=== PATIENT | male | born 1950 | race African-American/Black ===

== ENCOUNTER 2017-08-02 16:09 | Inpatient (IN) | payer MEDICARE, MEDICAID ==
[~2017-08-02] VITALS: Ht 182.9 cm; Wt 94.8 kg
[~2017-08-02 16:09] MED LIST: ACET-2178 PO; ALBU18HF2 IH; AMLO5TAB4 PO; DULERA INHALER; FURO20TA4 PO; HYDR-4134 PO; HYDR100T31 PO; METH10TA2 PO; METO25TA6 PO; MONT10TA24 PO; TIOT18CA3 PO; TRAMADOL PO
[2017-08-02] MEDS ORDERED: IPRATROPIUM BROMIDE (0.02%) 0.5MG/2.5ML NEB HHN STA (17:31)
[2017-08-02] MEDS ORDERED: ALBUTEROL (0.083%) 2.5MG/3ML NEB HHN STA (17:31)
[2017-08-02] MEDS ORDERED: METHYLPREDNISOLONE SOD SUCC 125 MG/2 ML VIAL IV STA (17:31)
[2017-08-02 18:02] LABS: BASOPHILS % 0.7 % (0.0-2.0); EOSINOPHILS % 1.4 % (0.0-5.0); HEMATOCRIT. 30.9 % (42.0-52.0); HEMOGLOBIN. 9.9 g/dL (14.0-18.0); MEAN CORPUSCULAR VOLUME 84.5 fL (80.0-94.0); MONOCYTES % 11.4 % (2.0-8.0); NEUTROPHILS % 56.5 % (40.0-76.0); PLATELET 300 x1000/uL (130-400); RED BLOOD CELL COUNT 3.65 mill/uL (4.7-6.1); RED CELL DISTRIBUTION WIDTH 15.1 % (11.6-14.6)
[2017-08-02 18:09] LABS: CHLORIDE 103 mEq/L (98-107)
[2017-08-02 18:11] LABS: INR 1.1; PROTHROMBIN TIME 11.4 sec (9.4-11.6)
[2017-08-02] MEDS ORDERED: ACETAMINOPHEN WITH CODEINE 300/30MG TABLET PO ONE (21:00)
[2017-08-02] MEDS ORDERED: NITROGLYCERIN 0.4MG TABLET SL SL PRN (21:30)
[2017-08-02] MEDS ORDERED: CLONIDINE 0.1MG TABLET PO PRN (21:30)
[2017-08-02] MEDS ORDERED: LORAZEPAM 0.5MG TABLET PO PRN (21:30)
[2017-08-02] MEDS ORDERED: NA PHOS,M-B/NA PHOS,DI-BA ENEMA 118ML PR PRN (21:30)
[2017-08-02] MEDS ORDERED: ONDANSETRON HCL 4MG/2ML VIAL IV PRN (21:30)
[2017-08-02] MEDS ORDERED: IPRATROPIUM/ALBUTEROL 0.5-3(2.5)MG/3ML NEB INH PRN (21:30)
[2017-08-02] MEDS ORDERED: DOCUSATE SODIUM 100MG CAPSULE PO PRN (21:30)
[2017-08-02] MEDS ORDERED: GUAIFENESIN 200MG/10ML SUGAR FREE UDC PO PRN (21:30)
[2017-08-02] MEDS ORDERED: IPRATROPIUM/ALBUTEROL 0.5-3(2.5)MG/3ML NEB HHN SCH (21:30)
[2017-08-02] MEDS ORDERED: MAGNESIUM/ALUMINUM HYDROXIDE/SIMETHICONE 30ML UDC PO PRN (21:30)
[2017-08-02] MEDS ORDERED: ACETAMINOPHEN 325MG TABLET PO PRN (21:30)
[2017-08-02] MEDS ORDERED: LEVOFLOXACIN 500MG PREMIX 100 ML IV NR (21:45)
[2017-08-02] MEDS: ENOXAPARIN 30MG/0.3ML SYR SUBCUT SCH (22:10)
[2017-08-02] MEDS ORDERED: METHYLPREDNISOLONE SOD SUCC 125 MG/2 ML VIAL IV NR (22:15)
[2017-08-03] VITALS: BP 122/65
[2017-08-03] MEDS ORDERED: ZOLPIDEM TARTRATE 5MG TABLET PO PRN (00:51)
[2017-08-03 01:40] LABS: CREATINE KINASE 77 IU/L (39-308)
[2017-08-03 01:41] LABS: CREATINE KINASE MB FRACTION 0.8 ng/mL (0.5-3.6)
[2017-08-03 04:00] VITALS: BP 131/64
[2017-08-03] MEDS: METHYLPREDNISOLONE SOD SUCC 125 MG/2 ML VIAL IV SCH ×3 (05:20→21:54)
[2017-08-03] MEDS: DILTIAZEM HCL 60MG TABLET PO SCH ×4 (05:21→19:05)
[2017-08-03 08:00] VITALS: BP 138/69
[2017-08-03] MEDS: CLOPIDOGREL 75MG TABLET PO SCH (08:27)
[2017-08-03] MEDS: FAMOTIDINE 20MG TABLET PO SCH (08:27)
[2017-08-03] MEDS: CILOSTAZOL 50 MG TABLET PO SCH ×2 (08:27→21:53)
[2017-08-03] MEDS: ENOXAPARIN 30MG/0.3ML SYR SUBCUT SCH (08:28)
[2017-08-03] MEDS: TRAMADOL 50MG TABLET PO PRN ×2 (08:35→22:16)
[2017-08-03] MEDS ORDERED: FAMOTIDINE 20MG TABLET PO SCH (09:00)
[2017-08-03 10:24] LABS: CREATINE KINASE 68 IU/L (39-308)
[2017-08-03 10:27] LABS: CREATINE KINASE MB FRACTION 0.6 ng/mL (0.5-3.6)
[2017-08-03] MEDS ORDERED: LEVOFLOXACIN 500MG PREMIX 100 ML IV NR (11:00)
[2017-08-03 12:00] VITALS: BP 127/67
[2017-08-03] MEDS ORDERED: VANCOMYCIN 1250MG in DEXTROSE 5% WATER 250ML IV NR (13:30)
[2017-08-03] MEDS ORDERED: VANCOMYCIN 1,750 MG in DEXT 5% WATER 250 ML IV SCH (14:00)
[2017-08-03] MEDS: METHADONE HCL 10MG TABLET PO SCH (15:02)
[2017-08-03 16:00] VITALS: BP 103/70
[2017-08-03 20:00] VITALS: BP 137/64
[2017-08-03] MEDS: LEVOFLOXACIN 250MG PREMIX 50 ML IV SCH (21:54)
[2017-08-03] MEDS ORDERED: LEVOFLOXACIN 500MG PREMIX 100 ML IV SCH (22:00)
[2017-08-04] VITALS: BP 122/75
[2017-08-04] MEDS: DILTIAZEM HCL 60MG TABLET PO SCH ×4 (00:33→17:33)
[2017-08-04 04:00] VITALS: BP 146/59
[2017-08-04] MEDS: IPRATROPIUM/ALBUTEROL 0.5-3(2.5)MG/3ML NEB HHN SCH ×5 (04:20→21:18)
[2017-08-04] MEDS: TRAMADOL 50MG TABLET PO PRN (05:38)
[2017-08-04] MEDS: METHYLPREDNISOLONE SOD SUCC 125 MG/2 ML VIAL IV SCH ×3 (05:42→21:06)
[2017-08-04 07:01] LABS: BASOPHILS % 0.1 % (0.0-2.0); HEMATOCRIT. 28.5 % (42.0-52.0); HEMOGLOBIN. 8.9 g/dL (14.0-18.0); LYMPHOCYTES % 7.5 % (20.0-50.0); MEAN CORPUSCULAR HEMOGLOBIN 26.3 pg (28.0-32.0); MEAN PLATELET VOLUME 8.5 fl (7.4-10.4); MONOCYTES % 3.7 % (2.0-8.0); NEUTROPHILS % 88.7 % (40.0-76.0); PLATELET 316 x1000/uL (130-400); RED BLOOD CELL COUNT 3.39 mill/uL (4.7-6.1)
[2017-08-04 07:29] LABS: CHLORIDE 103 mEq/L (98-107)
[2017-08-04 08:00] VITALS: BP 124/63
[2017-08-04] MEDS ORDERED: VANCOMYCIN 1 G PREMIX 200 ML IV SCH (08:00)
[2017-08-04] MEDS: FAMOTIDINE 20MG TABLET PO SCH (09:26)
[2017-08-04] MEDS: CILOSTAZOL 50 MG TABLET PO SCH ×2 (09:26→21:06)
[2017-08-04] MEDS: CLOPIDOGREL 75MG TABLET PO SCH (09:26)
[2017-08-04] MEDS: METHADONE HCL 10MG TABLET PO SCH (09:27)
[2017-08-04] MEDS: ENOXAPARIN 40MG/0.4ML SYR SUBCUT SCH (09:28)
[2017-08-04] MEDS: VANCOMYCIN 1500MG in DEXTROSE 5% WATER 250ML IV SCH (11:56)
[2017-08-04 12:00] VITALS: BP 126/63
[2017-08-04] MEDS ORDERED: VANCOMYCIN 1250MG in DEXTROSE 5% WATER 250ML IV SCH (12:00)
[2017-08-04 13:26] LABS: *AMPHETAMINES SCREEN URINE NEGATIVE (NEGATIVE); *BARBITURATES SCREEN URINE NEGATIVE (NEGATIVE); *BENZODIAZEPINES SCREEN URINE PRESUMTIVE POSITIVE (NEGATIVE); *COCAINE SCREEN URINE PRESUMTIVE POSITIVE (NEGATIVE); METHADONE URINE SCREEN PRESUMTIVE POSITIVE (NEGATIVE)
[2017-08-04 13:27] LABS: CANNABINOID URINE SCREEN PRESUMTIVE POSITIVE (NEGATIVE); OPIATES URINE SCREEN PRESUMTIVE POSITIVE (NEGATIVE); PHENCYCLIDINE URINE SCREEN NEGATIVE (NEGATIVE)
[2017-08-04 16:00] VITALS: BP 121/53
[2017-08-04 20:18] VITALS: BP 154/67
[2017-08-04] MEDS: LEVOFLOXACIN 250MG PREMIX 50 ML IV SCH (21:06)
[2017-08-05 00:13] VITALS: BP 137/63
[2017-08-05] MEDS: DILTIAZEM HCL 60MG TABLET PO SCH ×4 (00:37→18:15)
[2017-08-05] MEDS: IPRATROPIUM/ALBUTEROL 0.5-3(2.5)MG/3ML NEB HHN SCH ×6 (00:46→20:40)
[2017-08-05 04:00] VITALS: BP 139/61
[2017-08-05] MEDS: METHYLPREDNISOLONE SOD SUCC 125 MG/2 ML VIAL IV SCH ×3 (06:46→22:21)
[2017-08-05 08:00] VITALS: BP 137/60
[2017-08-05] MEDS: CLOPIDOGREL 75MG TABLET PO SCH ×2 (08:59→20:24)
[2017-08-05] MEDS: CILOSTAZOL 50 MG TABLET PO SCH ×2 (08:59→22:34)
[2017-08-05] MEDS: FAMOTIDINE 20MG TABLET PO SCH (09:00)
[2017-08-05] MEDS: METHADONE HCL 10MG TABLET PO SCH (09:00)
[2017-08-05] MEDS: ENOXAPARIN 40MG/0.4ML SYR SUBCUT SCH (09:01)
[2017-08-05] MEDS: VANCOMYCIN 1500MG in DEXTROSE 5% WATER 250ML IV SCH (09:16)
[2017-08-05 12:00] VITALS: BP 125/57
[2017-08-05 16:00] VITALS: BP 151/70
[2017-08-05 20:00] VITALS: BP 143/68
[2017-08-05] MEDS: TRAMADOL 50MG TABLET PO PRN (20:25)
[2017-08-05] MEDS: LEVOFLOXACIN 250MG PREMIX 50 ML IV SCH (22:21)
[2017-08-06] VITALS: BP 135/62
[2017-08-06] MEDS: DILTIAZEM HCL 60MG TABLET PO SCH ×3 (00:50→12:09)
[2017-08-06] MEDS: IPRATROPIUM/ALBUTEROL 0.5-3(2.5)MG/3ML NEB HHN SCH ×4 (03:26→11:38)
[2017-08-06 04:00] VITALS: BP 137/66
[2017-08-06] MEDS: METHYLPREDNISOLONE SOD SUCC 125 MG/2 ML VIAL IV SCH (06:12)
[2017-08-06 08:00] VITALS: BP 154/76
[2017-08-06] MEDS: FAMOTIDINE 20MG TABLET PO SCH (08:44)
[2017-08-06] MEDS: VANCOMYCIN 1500MG in DEXTROSE 5% WATER 250ML IV SCH (08:44)
[2017-08-06] MEDS: CLOPIDOGREL 75MG TABLET PO SCH (08:45)
[2017-08-06] MEDS: CILOSTAZOL 50 MG TABLET PO SCH (08:46)
[2017-08-06] MEDS: METHADONE HCL 10MG TABLET PO SCH (08:47)
[2017-08-06] MEDS: ENOXAPARIN 40MG/0.4ML SYR SUBCUT SCH (08:49)
[2017-08-06] MEDS: TRAMADOL 50MG TABLET PO PRN (08:49)
[2017-08-06 10:49] VITALS: BP_SYST 142; BP_SYST 154; BP_DIAS 76
[2017-08-06] MEDS ORDERED: SULF1TAB48 PO ×2 (11:03→11:04)
[2017-08-06] MEDS ORDERED: LEVO500T2 PO (11:05)
[2017-08-06 12:00] VITALS: BP 157/68
== END 2017-08-06 13:49 | disposition home or self-care (01) | DRG 140 ==
LOC: ER 17:10 → 7WST 20:53 → EDBEDREQTM 20:57 → EDBEDREQ 20:57 → SUPCPDRO 21:26 → ENRESERV 23:34
PROVIDERS: ADMIT Internal Medicine; ATTEND Internal Medicine
DX: J44.1 Chronic obstructive pulmonary disease with (acute) exacerbation (principal); J96.00 Acute respiratory failure, unspecified whether with hypoxia or hypercapnia; N17.0 Acute kidney failure with tubular necrosis; D63.8 Anemia in other chronic diseases classified elsewhere; E44.0 Moderate protein-calorie malnutrition; I10 Essential (primary) hypertension; L03.116 Cellulitis of left lower limb; F17.210 Nicotine dependence, cigarettes, uncomplicated; F19.10 Other psychoactive substance abuse, uncomplicated; I73.9 Peripheral vascular disease, unspecified; Z96.649 Presence of unspecified artificial hip joint; M10.9 Gout, unspecified; M19.90 Unspecified osteoarthritis, unspecified site; Z88.6 Allergy status to analgesic agent; Z88.8 Allergy status to other drugs, medicaments and biological substances; Z76.5 Malingerer [conscious simulation]; Z79.899 Other long term (current) drug therapy; Z86.718 Personal history of other venous thrombosis and embolism; Z71.6 Tobacco abuse counseling; Z68.28 Body mass index [BMI] 28.0-28.9, adult
CPT/HCPCS: 36415; 71045; 73630; 80048; 80053; 80305; 82550; 82553; 83880; 84484; 85025; 85610; 87040; 93005; 93971; 94640; 96365; 96372; 96375; 97162; 97165; 99285; J1650; J1956; J2930; J3370; J7050; J7060; J7611; J7620

== ENCOUNTER 2019-01-18 22:01 | Inpatient (IN) | payer MEDICARE, MEDICAID ==
[~2019-01-18] VITALS: Ht 182.9 cm; Wt 90.7 kg
[~2019-01-18 22:01] MED LIST changes: -ACET-2178 PO; +TOPUD PO
[2019-01-18] MEDS ORDERED: IPRATROPIUM BROMIDE (0.02%) 0.5MG/2.5ML NEB HHN STA (22:11)
[2019-01-18] MEDS ORDERED: ALBUTEROL (0.083%) 2.5MG/3ML NEB HHN STA (22:11)
[2019-01-18] MEDS ORDERED: METHYLPREDNISOLONE SOD SUCC 125 MG/2 ML VIAL IV STA (22:11)
[2019-01-18 23:06] LABS: BASOPHILS % 0.5 % (0.0-2.0); EOSINOPHILS % 4.2 % (0.0-5.0); HEMATOCRIT. 35.6 % (42.0-52.0); HEMOGLOBIN. 11.2 g/dL (14.0-18.0); LYMPHOCYTES % 31.4 % (20.0-50.0); MEAN CORPUSCULAR HEMOGLOBIN 27.3 pg (28.0-32.0); MEAN CORPUSCULAR VOLUME 86.5 fL (80.0-94.0); MEAN PLATELET VOLUME 8.7 fl (7.4-10.4); NEUTROPHILS % 54.9 % (40.0-76.0); PLATELET 152 x1000/uL (130-400); RED BLOOD CELL COUNT 4.11 mill/uL (4.7-6.1)
[2019-01-18 23:11] LABS: CHLORIDE 110 mEq/L (98-107)
[2019-01-19] VITALS (9 sets, daily range): BP systolic 134–166; BP diastolic 72–92
[2019-01-19] MEDS ORDERED: AZITHROMYCIN 500 MG in DEXT 5% WATER 250 ML IV SCH ×2 (00:15→01:00)
[2019-01-19] MEDS ORDERED: ONDANSETRON HCL 4MG/2ML INJ IV PRN (00:15)
[2019-01-19] MEDS ORDERED: CEFTRIAXONE 1 G PREMIX 50 ML IV NR (00:15)
[2019-01-19] MEDS ORDERED: ACETAMINOPHEN 325MG TABLET PO PRN (00:15)
[2019-01-19 00:34] LABS: BG BASE EXCESS 1.7 mmol/L (-2.0-2.0); BG BILEVEL POS AIRWAY PRESSURE 16/5; BG CARBOXYHEMOGLOBIN 0.7 % (0.5-1.5); BG DEOXYHEMOGLOBIN 14.5 % (0.0-5.0); BG FRACTION INSPIRED OXYGEN 50; BG HCO3 ACT 28.5 mmol/L (22.0-26.0); BG METHEMOGLOBIN 0.2 % (0.0-1.5); BG OXYGEN SATURATION 85.4 % (92.0-98.5); BG OXYHEMOGLOBIN 84.6 % (94.0-97.0); BG PCO2 55.5 mmHg (35.0-45.0); BG PH 7.329 (7.350-7.450); BG PO2 52.2 mmHg (75.0-100.0); BG SAMPLE SITE RIGHT RADIAL; BG TOTAL HEMOGLOBIN 11.8 g/dL (12.0-18.0); BG VENT MODE MASK - BIPAP
[2019-01-19] MEDS: HEPARIN 5000 UNITS/ML VIAL SUBCUT SCH ×2 (09:50→22:50)
[2019-01-19] MEDS ORDERED: ALLO100T MT (12:53)
[2019-01-19] MEDS ORDERED: ALBU2.5V13 IH (12:53)
[2019-01-19] MEDS ORDERED: ATOR-2 MT (12:53)
[2019-01-19] MEDS ORDERED: CLOP75TA4 MT (12:53)
[2019-01-19] MEDS ORDERED: GABA-531 PO (13:24)
[2019-01-19] MEDS ORDERED: PANT40TA4 PO (13:24)
[2019-01-19] MEDS ORDERED: HYDR-4135 MT (13:24)
[2019-01-19] MEDS ORDERED: FURO-151 MT (13:24)
[2019-01-19] MEDS ORDERED: METH-611 GT (13:24)
[2019-01-19] MEDS ORDERED: INFLUENZA VIRUS VACCINE(AFLURIA) 0.5ML SYR IM ONE (14:45)
[2019-01-19] MEDS ORDERED: IPRATROPIUM/ALBUTEROL 0.5-3(2.5)MG/3ML NEB HHN PRN (16:00)
[2019-01-19] MEDS: IPRATROPIUM/ALBUTEROL 0.5-3(2.5)MG/3ML NEB HHN SCH ×2 (16:37→20:27)
[2019-01-19 17:15] LABS: BG BASE EXCESS 0.1 mmol/L (-2.0-2.0); BG CARBOXYHEMOGLOBIN 0.1 % (0.5-1.5); BG DEOXYHEMOGLOBIN 7.3 % (0.0-5.0); BG FRACTION INSPIRED OXYGEN 28; BG HCO3 ACT 24.9 mmol/L (22.0-26.0); BG METHEMOGLOBIN 0.1 % (0.0-1.5); BG OXYGEN SATURATION 92.7 % (92.0-98.5); BG OXYHEMOGLOBIN 92.5 % (94.0-97.0); BG PH 7.401 (7.350-7.450); BG PO2 65.7 mmHg (75.0-100.0); BG SAMPLE SITE RIGHT RADIAL; BG TOTAL HEMOGLOBIN 11.7 g/dL (12.0-18.0); BG VENT MODE NASAL CANNULA
[2019-01-19] MEDS ORDERED: METHYLPREDNISOLONE SOD SUCC 125 MG/2 ML VIAL IV SCH (18:00)
[2019-01-19] MEDS: METHYLPREDNISOLONE SOD SUCC 40 MG/ML VIAL IV SCH (18:57)
[2019-01-19] MEDS: DOXYCYCLINE 100 MG in DEXT 5% WATER 100 ML IV SCH (18:57)
[2019-01-19] MEDS: NICOTINE 14MG PATCH TD SCH (18:58)
[2019-01-19] MEDS: BUDESONIDE 0.5MG/2ML NEB HHN SCH (20:28)
[2019-01-19] MEDS: GUAIFENESIN 600MG ER TABLET PO SCH (22:06)
[2019-01-20] VITALS (12 sets, daily range): BP systolic 136–159; BP diastolic 69–90
[2019-01-20] MEDS: IPRATROPIUM/ALBUTEROL 0.5-3(2.5)MG/3ML NEB HHN SCH ×7 (00:17→23:55)
[2019-01-20] MEDS: METHYLPREDNISOLONE SOD SUCC 40 MG/ML VIAL IV SCH ×2 (02:44→09:21)
[2019-01-20] MEDS: DOXYCYCLINE 100 MG in DEXT 5% WATER 100 ML IV SCH ×2 (05:55→17:45)
[2019-01-20 07:18] LABS: BASOPHILS % 0.1 % (0.0-2.0); HEMATOCRIT. 33.8 % (42.0-52.0); HEMOGLOBIN. 10.7 g/dL (14.0-18.0); LYMPHOCYTES % 9.6 % (20.0-50.0); MEAN CORPUSCULAR HEMOGLOBIN 27.3 pg (28.0-32.0); MEAN CORPUSCULAR VOLUME 86.2 fL (80.0-94.0); MEAN PLATELET VOLUME 9.3 fl (7.4-10.4); MONOCYTES % 3.7 % (2.0-8.0); NEUTROPHILS % 86.6 % (40.0-76.0); PLATELET 161 x1000/uL (130-400); RED BLOOD CELL COUNT 3.92 mill/uL (4.7-6.1); RED CELL DISTRIBUTION WIDTH 16.1 % (11.6-14.6)
[2019-01-20 07:44] LABS: CHLORIDE 109 mEq/L (98-107)
[2019-01-20] MEDS ORDERED: ALBU90AE INH (08:56)
[2019-01-20] MEDS ORDERED: LOPHC2 MT (09:08)
[2019-01-20] MEDS: HEPARIN 5000 UNITS/ML VIAL SUBCUT SCH ×2 (09:21→22:46)
[2019-01-20] MEDS: NICOTINE 14MG PATCH TD SCH (09:21)
[2019-01-20] MEDS: GUAIFENESIN 600MG ER TABLET PO SCH ×2 (09:22→22:45)
[2019-01-20] MEDS: BUDESONIDE 0.5MG/2ML NEB HHN SCH ×2 (09:50→20:01)
[2019-01-20 10:36] LABS: BG BASE EXCESS -1.8 mmol/L (-2.0-2.0); BG CARBOXYHEMOGLOBIN 0.4 % (0.5-1.5); BG DEOXYHEMOGLOBIN 9.8 % (0.0-5.0); BG FRACTION INSPIRED OXYGEN 21; BG HCO3 ACT 22.6 mmol/L (22.0-26.0); BG METHEMOGLOBIN 0.2 % (0.0-1.5); BG OXYGEN SATURATION 90.1 % (92.0-98.5); BG OXYHEMOGLOBIN 89.6 % (94.0-97.0); BG PCO2 37.2 mmHg (35.0-45.0); BG PH 7.402 (7.350-7.450); BG PO2 57.2 mmHg (75.0-100.0); BG SAMPLE SITE RIGHT RADIAL; BG TOTAL HEMOGLOBIN 11.6 g/dL (12.0-18.0); BG VENT MODE ROOM AIR
[2019-01-20] MEDS: METHADONE HCL 10MG TABLET PO SCH (11:19)
[2019-01-20] MEDS: METOPROLOL TARTRATE 100MG TABLET PO SCH ×2 (15:38→22:45)
[2019-01-20] MEDS: FUROSEMIDE 40MG TABLET PO SCH (15:38)
[2019-01-20] MEDS: HYDRALAZINE HCL 50MG TABLET PO SCH ×2 (15:38→22:47)
[2019-01-20] MEDS: PREDNISONE 20MG TABLET PO SCH (17:46)
[2019-01-21] VITALS (15 sets, daily range): BP systolic 15–164; BP diastolic 65–94
[2019-01-21] MEDS: IPRATROPIUM/ALBUTEROL 0.5-3(2.5)MG/3ML NEB HHN SCH ×5 (03:46→21:27)
[2019-01-21] MEDS: DOXYCYCLINE 100 MG in DEXT 5% WATER 100 ML IV SCH ×2 (05:56→17:29)
[2019-01-21 06:10] LABS: BASOPHILS % 0.1 % (0.0-2.0); HEMATOCRIT. 35.3 % (42.0-52.0); HEMOGLOBIN. 10.9 g/dL (14.0-18.0); LYMPHOCYTES % 12.4 % (20.0-50.0); MEAN CORPUSCULAR HEMOGLOBIN 26.6 pg (28.0-32.0); MEAN CORPUSCULAR VOLUME 86.1 fL (80.0-94.0); MEAN PLATELET VOLUME 9.4 fl (7.4-10.4); MONOCYTES % 6.5 % (2.0-8.0); PLATELET 188 x1000/uL (130-400); RED BLOOD CELL COUNT 4.11 mill/uL (4.7-6.1); RED CELL DISTRIBUTION WIDTH 16.4 % (11.6-14.6)
[2019-01-21 06:50] LABS: CHLORIDE 105 mEq/L (98-107)
[2019-01-21] MEDS: FUROSEMIDE 40MG TABLET PO SCH (09:13)
[2019-01-21] MEDS: PREDNISONE 20MG TABLET PO SCH ×2 (09:13→17:29)
[2019-01-21] MEDS: METHADONE HCL 10MG TABLET PO SCH (09:13)
[2019-01-21] MEDS: HYDRALAZINE HCL 50MG TABLET PO SCH ×2 (09:13→20:56)
[2019-01-21] MEDS: GUAIFENESIN 600MG ER TABLET PO SCH ×2 (09:13→20:56)
[2019-01-21] MEDS: NICOTINE 14MG PATCH TD SCH (09:14)
[2019-01-21] MEDS: HEPARIN 5000 UNITS/ML VIAL SUBCUT SCH ×2 (09:14→20:56)
[2019-01-21] MEDS: METOPROLOL TARTRATE 100MG TABLET PO SCH (09:25)
[2019-01-21] MEDS: BUDESONIDE 0.5MG/2ML NEB HHN SCH ×2 (09:34→21:26)
[2019-01-21] MEDS ORDERED: CLOPIDOGREL 75MG TABLET PO SCH (14:00)
[2019-01-21] MEDS: AMLODIPINE 5MG TABLET PO SCH (20:56)
[2019-01-22] VITALS (18 sets, daily range): BP systolic 121–165; BP diastolic 72–91
[2019-01-22] MEDS: IPRATROPIUM/ALBUTEROL 0.5-3(2.5)MG/3ML NEB HHN SCH ×6 (01:43→20:50)
[2019-01-22] MEDS: DOXYCYCLINE 100 MG in DEXT 5% WATER 100 ML IV SCH ×2 (06:23→16:33)
[2019-01-22 06:47] LABS: BASOPHILS % 0.2 % (0.0-2.0); HEMATOCRIT. 36.9 % (42.0-52.0); HEMOGLOBIN. 11.7 g/dL (14.0-18.0); LYMPHOCYTES % 12.4 % (20.0-50.0); MEAN CORPUSCULAR HEMOGLOBIN 27.4 pg (28.0-32.0); MEAN CORPUSCULAR VOLUME 86.4 fL (80.0-94.0); MEAN PLATELET VOLUME 9.4 fl (7.4-10.4); MONOCYTES % 6.1 % (2.0-8.0); NEUTROPHILS % 81.3 % (40.0-76.0); PLATELET 192 x1000/uL (130-400); RED BLOOD CELL COUNT 4.27 mill/uL (4.7-6.1); RED CELL DISTRIBUTION WIDTH 16.3 % (11.6-14.6)
[2019-01-22 07:46] LABS: CHLORIDE 104 mEq/L (98-107)
[2019-01-22] MEDS: BUDESONIDE 0.5MG/2ML NEB HHN SCH ×2 (08:00→20:50)
[2019-01-22] MEDS: HEPARIN 5000 UNITS/ML VIAL SUBCUT SCH ×2 (08:01→21:24)
[2019-01-22] MEDS: HYDRALAZINE HCL 50MG TABLET PO SCH ×2 (08:02→21:25)
[2019-01-22] MEDS: METHADONE HCL 10MG TABLET PO SCH (08:02)
[2019-01-22] MEDS: FUROSEMIDE 40MG TABLET PO SCH (08:03)
[2019-01-22] MEDS: NICOTINE 14MG PATCH TD SCH (08:03)
[2019-01-22] MEDS: CLOPIDOGREL 75MG TABLET PO SCH (08:03)
[2019-01-22] MEDS: AMLODIPINE 5MG TABLET PO SCH ×2 (08:03→21:23)
[2019-01-22] MEDS: GUAIFENESIN 600MG ER TABLET PO SCH ×2 (08:03→21:23)
[2019-01-22] MEDS: PREDNISONE 20MG TABLET PO SCH ×2 (08:14→17:06)
[2019-01-22] MEDS: CLONIDINE 0.1MG TABLET PO SCH ×3 (09:21→21:23)
[2019-01-23] VITALS (17 sets, daily range): BP systolic 124–172; BP diastolic 70–88
[2019-01-23] MEDS: IPRATROPIUM/ALBUTEROL 0.5-3(2.5)MG/3ML NEB HHN SCH ×6 (00:47→20:20)
[2019-01-23] MEDS: DOXYCYCLINE 100 MG in DEXT 5% WATER 100 ML IV SCH ×2 (05:53→17:33)
[2019-01-23] MEDS: CLONIDINE 0.1MG TABLET PO SCH ×3 (05:53→21:23)
[2019-01-23 06:04] LABS: BASOPHILS % 0.1 % (0.0-2.0); HEMATOCRIT. 36.4 % (42.0-52.0); HEMOGLOBIN. 11.5 g/dL (14.0-18.0); LYMPHOCYTES % 14.1 % (20.0-50.0); MEAN CORPUSCULAR HEMOGLOBIN 27.2 pg (28.0-32.0); MEAN PLATELET VOLUME 9.2 fl (7.4-10.4); NEUTROPHILS % 74.8 % (40.0-76.0); PLATELET 191 x1000/uL (130-400); RED BLOOD CELL COUNT 4.23 mill/uL (4.7-6.1); RED CELL DISTRIBUTION WIDTH 16.3 % (11.6-14.6)
[2019-01-23 06:43] LABS: CHLORIDE 105 mEq/L (98-107)
[2019-01-23] MEDS: NICOTINE 14MG PATCH TD SCH (08:09)
[2019-01-23] MEDS: METHADONE HCL 10MG TABLET PO SCH (08:09)
[2019-01-23] MEDS: CLOPIDOGREL 75MG TABLET PO SCH (08:10)
[2019-01-23] MEDS: FUROSEMIDE 40MG TABLET PO SCH (08:10)
[2019-01-23] MEDS: HEPARIN 5000 UNITS/ML VIAL SUBCUT SCH ×2 (08:10→21:23)
[2019-01-23] MEDS: HYDRALAZINE HCL 50MG TABLET PO SCH ×2 (08:10→21:22)
[2019-01-23] MEDS: PREDNISONE 20MG TABLET PO SCH ×2 (08:10→17:33)
[2019-01-23] MEDS: GUAIFENESIN 600MG ER TABLET PO SCH ×2 (08:11→21:23)
[2019-01-23] MEDS: AMLODIPINE 5MG TABLET PO SCH ×2 (08:11→21:22)
[2019-01-23] MEDS ORDERED: P50 MT (12:44)
[2019-01-23] MEDS ORDERED: DOXY100C2 MT (12:44)
[2019-01-23 15:46] LABS: BG BASE EXCESS 0.6 mmol/L (-2.0-2.0); BG CARBOXYHEMOGLOBIN 0.6 % (0.5-1.5); BG DEOXYHEMOGLOBIN 6.6 % (0.0-5.0); BG FRACTION INSPIRED OXYGEN 21; BG HCO3 ACT 25.3 mmol/L (22.0-26.0); BG METHEMOGLOBIN 0.2 % (0.0-1.5); BG OXYGEN SATURATION 93.3 % (92.0-98.5); BG OXYHEMOGLOBIN 92.6 % (94.0-97.0); BG PCO2 40.9 mmHg (35.0-45.0); BG PH 7.409 (7.350-7.450); BG PO2 67.8 mmHg (75.0-100.0); BG SAMPLE SITE RIGHT RADIAL; BG TOTAL HEMOGLOBIN 12.2 g/dL (12.0-18.0); BG VENT MODE ROOM AIR
[2019-01-24] VITALS: BP 127/71
[2019-01-24] MEDS: IPRATROPIUM/ALBUTEROL 0.5-3(2.5)MG/3ML NEB HHN SCH ×3 (00:29→11:35)
[2019-01-24 08:01] VITALS: BP 143/81
[2019-01-24 09:22] LABS: HEMATOCRIT. 34.3 % (42.0-52.0); HEMOGLOBIN. 10.8 g/dL (14.0-18.0); MEAN CORPUSCULAR HEMOGLOBIN 27.1 pg (28.0-32.0); MEAN PLATELET VOLUME 9.2 fl (7.4-10.4); PLATELET 185 x1000/uL (130-400); RED BLOOD CELL COUNT 3.99 mill/uL (4.7-6.1); RED CELL DISTRIBUTION WIDTH 16.2 % (11.6-14.6)
[2019-01-24 09:50] LABS: CHLORIDE 105 mEq/L (98-107)
[2019-01-24 10:00] VITALS: BP 109/74
[2019-01-24] MEDS: FUROSEMIDE 40MG TABLET PO SCH (10:02)
[2019-01-24] MEDS: CLOPIDOGREL 75MG TABLET PO SCH (10:02)
[2019-01-24] MEDS: GUAIFENESIN 600MG ER TABLET PO SCH (10:03)
[2019-01-24] MEDS: PREDNISONE 20MG TABLET PO SCH (10:03)
[2019-01-24] MEDS: HYDRALAZINE HCL 50MG TABLET PO SCH (10:03)
[2019-01-24] MEDS: AMLODIPINE 5MG TABLET PO SCH (10:03)
[2019-01-24] MEDS: NICOTINE 14MG PATCH TD SCH (10:04)
[2019-01-24] MEDS: HEPARIN 5000 UNITS/ML VIAL SUBCUT SCH (10:05)
[2019-01-24] MEDS: METHADONE HCL 10MG TABLET PO SCH (10:05)
[2019-01-24] MEDS ORDERED: ONDANSETRON HCL 4MG/2ML INJ IV PRN (12:15)
[2019-01-24 12:55] VITALS: BP 120/70
[2019-01-24 17:46] LABS: ATYPICAL LYMPHOCYTES 1; NUCLEATED RED BLOOD CELLS 2 /100 WBC; PLATELET ESTIMATE NORMAL
[2019-01-25] MEDS ORDERED: PREDNISONE 20MG TABLET PO SCH (09:00)
== END 2019-01-24 13:45 | disposition home or self-care (01) | DRG 133 ==
LOC: ER 22:01 → 5WST 01-19 00:09 → 5EST 01-19 00:09 → UNDOADMIN 01-19 00:09 → EDBEDREQ 01-19 00:11 → EDBEDREQTM 01-19 00:11 → ENRESERV 01-19 07:08 → CANRESERV 01-19 07:08 → ENRESERV 01-19 08:30
PROVIDERS: ADMIT Family Medicine Adult Medicine; ATTEND Family Medicine Adult Medicine
PROC: 5A09357 Assistance with Respiratory Ventilation, Less than 24 Consecutive Hours, Continuous Positive Airway Pressure (ICD-10-PCS; principal; 2019-01-18)
DX: J96.01 Acute respiratory failure with hypoxia (principal); J18.9 Pneumonia, unspecified organism; I11.0 Hypertensive heart disease with heart failure; G62.9 Polyneuropathy, unspecified; E87.5 Hyperkalemia; F11.20 Opioid dependence, uncomplicated; I50.22 Chronic systolic (congestive) heart failure; J44.1 Chronic obstructive pulmonary disease with (acute) exacerbation; J96.02 Acute respiratory failure with hypercapnia; J20.9 Acute bronchitis, unspecified; D72.821 Monocytosis (symptomatic); E78.5 Hyperlipidemia, unspecified; D64.9 Anemia, unspecified; M19.90 Unspecified osteoarthritis, unspecified site; I73.9 Peripheral vascular disease, unspecified; Z96.642 Presence of left artificial hip joint; F17.210 Nicotine dependence, cigarettes, uncomplicated; G89.29 Other chronic pain; J44.0 Chronic obstructive pulmonary disease with (acute) lower respiratory infection; Z82.49 Family history of ischemic heart disease and other diseases of the circulatory system; Z82.41 Family history of sudden cardiac death; Z86.718 Personal history of other venous thrombosis and embolism; Z79.02 Long term (current) use of antithrombotics/antiplatelets; Z88.6 Allergy status to analgesic agent; Z89.422 Acquired absence of other left toe(s)
CPT/HCPCS: 36415; 36600; 71045; 80048; 82375; 82805; 83735; 83880; 84484; 87804; 93005; 93306; 94618; 94644; 94660; 96365; 96366; 96367; 96375; 97162; 99291; C1893; J0456; J0696; J1644; J2405; J2920; J2930; J3490; J7060; J7512; J7611; J7620; J7626

== ENCOUNTER 2019-03-14 11:44 | Inpatient (IN) | payer MEDICARE, MEDICAID ==
[~2019-03-14] VITALS: Ht 182.9 cm; Wt 97.5 kg
[~2019-03-14 11:44] MED LIST changes: +ALBU2.5V13 IH; +ALBU90AE INH; +ALLO100T MT; +ATOR-2 MT; +CLOP75TA4 MT; +DOXY100C2 MT; +FURO-151 MT; +GABA-531 PO; +HYDR-4135 MT; +LOPHC2 MT; +METH-611 GT; -MONT10TA24 PO; +MONT10TA26 PO; +P50 MT; +PANT40TA4 PO
[2019-03-14 17:36] LABS: CLARITY URINE CLEAR (CLEAR); COLOR URINE YELLOW (YELLOW); KETONES URINE NEGATIVE (NEGATIVE); LEUKOCYTE ESTERASE URINE NEGATIVE (NEGATIVE); NITRITE URINE NEGATIVE (NEGATIVE); OCCULT BLOOD URINE NEGATIVE (NEGATIVE); PROTEIN URINE NEGATIVE (NEGATIVE); SPECIFIC GRAVITY URINE 1.012 (1.005-1.030); UROBILINOGEN URINE 0.2 E.U./dL (0.2-1.0)
[2019-03-14 18:10] LABS: BASOPHILS % 0.4 % (0.0-2.0); EOSINOPHILS % 1.2 % (0.0-5.0); HEMATOCRIT. 34.7 % (42.0-52.0); HEMOGLOBIN. 10.9 g/dL (14.0-18.0); LYMPHOCYTES % 24.5 % (20.0-50.0); MEAN CORPUSCULAR HEMOGLOBIN 26.9 pg (28.0-32.0); MEAN CORPUSCULAR VOLUME 85.5 fL (80.0-94.0); MEAN PLATELET VOLUME 8.6 fl (7.4-10.4); MONOCYTES % 12.6 % (2.0-8.0); NEUTROPHILS % 61.3 % (40.0-76.0); PLATELET 152 x1000/uL (130-400); RED BLOOD CELL COUNT 4.06 mill/uL (4.7-6.1); RED CELL DISTRIBUTION WIDTH 15.5 % (11.6-14.6)
[2019-03-14 18:15] LABS: CHLORIDE 108 mEq/L (98-107)
[2019-03-14] MEDS ORDERED: ONDANSETRON HCL 4MG/2ML INJ IV STA (18:35)
[2019-03-14] MEDS ORDERED: MORPHINE SULFATE 4 MG/ML CPJ (NOT FOR IM USE) IV STA (18:35)
[2019-03-14] MEDS ORDERED: ASPIRIN 81MG TABLET PO ONE (18:45)
[2019-03-14 19:17] LABS: PROTHROMBIN TIME 10.6 sec (9.6-11.0)
[2019-03-14] MEDS ORDERED: DOCUSATE SODIUM 100MG CAPSULE PO PRN (21:00)
[2019-03-14] MEDS ORDERED: IPRATROPIUM/ALBUTEROL 0.5-3(2.5)MG/3ML NEB HHN PRN (21:00)
[2019-03-14] MEDS ORDERED: DIPHENHYDRAMINE 50MG/ML VIAL IV PRN (21:00)
[2019-03-14] MEDS ORDERED: MAGNESIUM/ALUMINUM HYDROXIDE/SIMETHICONE 30ML UDC PO PRN (21:00)
[2019-03-14] MEDS ORDERED: CLONIDINE 0.1MG TABLET PO PRN (21:00)
[2019-03-14] MEDS ORDERED: LORAZEPAM 2MG/ML CPJ IV PRN (21:00)
[2019-03-14] MEDS ORDERED: ONDANSETRON HCL 4MG/2ML INJ IV PRN (21:00)
[2019-03-14] MEDS ORDERED: HYDRALAZINE 20MG/ML VIAL IV PRN (21:00)
[2019-03-14] MEDS ORDERED: GUAIFENESIN 200MG/10ML SUGAR FREE UDC PO PRN (21:00)
[2019-03-14] MEDS ORDERED: IOHEXOL-350 100 ML BOTTLE ONE (22:38)
[2019-03-14] MEDS: ENOXAPARIN 100MG/ML SYR SUBCUT SCH (22:47)
[2019-03-14] MEDS: MORPHINE SULFATE 2 MG/ML CPJ (NOT FOR IM USE) IV PRN (22:47)
[2019-03-14] MEDS: SODIUM CHLORIDE 0.9% INJ 3ML FLUSH IVF SCH (22:48)
[2019-03-15] MEDS: HYDROCODONE/ACETAMINOPHEN 10/325MG TABLET PO PRN (00:23)
[2019-03-15 04:39] LABS: BASOPHILS % 0.6 % (0.0-2.0); EOSINOPHILS % 4.2 % (0.0-5.0); HEMATOCRIT. 31.2 % (42.0-52.0); LYMPHOCYTES % 29.4 % (20.0-50.0); MEAN CORPUSCULAR HEMOGLOBIN 27.3 pg (28.0-32.0); MEAN CORPUSCULAR VOLUME 85.3 fL (80.0-94.0); MONOCYTES % 12.8 % (2.0-8.0); PLATELET 140 x1000/uL (130-400); RED BLOOD CELL COUNT 3.66 mill/uL (4.7-6.1); RED CELL DISTRIBUTION WIDTH 15.8 % (11.6-14.6)
[2019-03-15 04:47] LABS: CHLORIDE 109 mEq/L (98-107)
[2019-03-15 04:55] LABS: CREATINE KINASE 53 IU/L (39-308)
[2019-03-15 04:58] LABS: CREATINE KINASE MB FRACTION < 1.0 ng/mL (0.5-3.6)
[2019-03-15] MEDS: ENOXAPARIN 100MG/ML SYR SUBCUT SCH ×2 (10:29→21:31)
[2019-03-15 10:36] VITALS: BP 155/70
[2019-03-15 12:27] VITALS: BP 156/72
[2019-03-15] MEDS: SODIUM CHLORIDE 0.9% INJ 3ML FLUSH IVF SCH ×2 (15:15→21:31)
[2019-03-15] MEDS ORDERED: TIOT18CA3 IH (16:20)
[2019-03-15 17:21] VITALS: BP 123/93
[2019-03-15] MEDS: MORPHINE SULFATE 2 MG/ML CPJ (NOT FOR IM USE) IV PRN (21:32)
[2019-03-15] MEDS: BUDESONIDE 0.5MG/2ML NEB HHN SCH (21:44)
[2019-03-15] MEDS: IPRATROPIUM/ALBUTEROL 0.5-3(2.5)MG/3ML NEB HHN SCH (21:45)
[2019-03-16] VITALS: BP 139/62
[2019-03-16] MEDS: IPRATROPIUM/ALBUTEROL 0.5-3(2.5)MG/3ML NEB HHN SCH ×4 (02:52→21:52)
[2019-03-16 04:00] VITALS: BP 150/78
[2019-03-16] MEDS: SODIUM CHLORIDE 0.9% INJ 3ML FLUSH IVF SCH ×3 (05:36→20:54)
[2019-03-16] MEDS: MORPHINE SULFATE 2 MG/ML CPJ (NOT FOR IM USE) IV PRN ×4 (05:38→20:53)
[2019-03-16 06:16] LABS: BASOPHILS % 0.3 % (0.0-2.0); EOSINOPHILS % 4.1 % (0.0-5.0); HEMATOCRIT. 31.8 % (42.0-52.0); HEMOGLOBIN. 10.2 g/dL (14.0-18.0); LYMPHOCYTES % 27.4 % (20.0-50.0); MEAN CORPUSCULAR HEMOGLOBIN 27.3 pg (28.0-32.0); MEAN CORPUSCULAR VOLUME 85.1 fL (80.0-94.0); MEAN PLATELET VOLUME 8.9 fl (7.4-10.4); MONOCYTES % 13.2 % (2.0-8.0); PLATELET 168 x1000/uL (130-400); RED BLOOD CELL COUNT 3.74 mill/uL (4.7-6.1); RED CELL DISTRIBUTION WIDTH 15.7 % (11.6-14.6)
[2019-03-16 08:00] VITALS: BP 141/67
[2019-03-16] MEDS: ENOXAPARIN 100MG/ML SYR SUBCUT SCH ×2 (08:19→20:52)
[2019-03-16 10:19] LABS: CHLORIDE 108 mEq/L (98-107)
[2019-03-16] MEDS: BUDESONIDE 0.5MG/2ML NEB HHN SCH (10:25)
[2019-03-16 12:00] VITALS: BP 136/67
[2019-03-16] MEDS: HYDROCODONE/ACETAMINOPHEN 10/325MG TABLET PO PRN (15:21)
[2019-03-16 16:28] VITALS: BP 146/68
[2019-03-16 20:00] VITALS: BP 135/63
[2019-03-17] VITALS: BP 113/71
[2019-03-17 04:00] VITALS: BP 150/73
[2019-03-17] MEDS: IPRATROPIUM/ALBUTEROL 0.5-3(2.5)MG/3ML NEB HHN SCH ×3 (04:15→13:40)
[2019-03-17] MEDS: SODIUM CHLORIDE 0.9% INJ 3ML FLUSH IVF SCH ×3 (06:01→21:24)
[2019-03-17] MEDS: MORPHINE SULFATE 2 MG/ML CPJ (NOT FOR IM USE) IV PRN ×3 (06:03→15:42)
[2019-03-17 06:56] LABS: BASOPHILS % 0.3 % (0.0-2.0); EOSINOPHILS % 3.9 % (0.0-5.0); HEMOGLOBIN. 9.8 g/dL (14.0-18.0); LYMPHOCYTES % 25.2 % (20.0-50.0); MEAN CORPUSCULAR HEMOGLOBIN 27.3 pg (28.0-32.0); MEAN CORPUSCULAR VOLUME 83.6 fL (80.0-94.0); MONOCYTES % 11.1 % (2.0-8.0); NEUTROPHILS % 59.5 % (40.0-76.0); PLATELET 185 x1000/uL (130-400); RED BLOOD CELL COUNT 3.58 mill/uL (4.7-6.1); RED CELL DISTRIBUTION WIDTH 15.6 % (11.6-14.6)
[2019-03-17 07:43] VITALS: BP 133/75
[2019-03-17] MEDS: BUDESONIDE 0.5MG/2ML NEB HHN SCH ×2 (07:51→19:50)
[2019-03-17] MEDS: ACETAMINOPHEN 325MG TABLET PO PRN (08:31)
[2019-03-17] MEDS: ENOXAPARIN 100MG/ML SYR SUBCUT SCH ×2 (08:31→21:24)
[2019-03-17 09:47] LABS: CHLORIDE 107 mEq/L (98-107)
[2019-03-17] MEDS ORDERED: DIGOXIN 250MCG TABLET PO NR (10:15)
[2019-03-17] MEDS: LEVOFLOXACIN 500MG PREMIX 100 ML IV SCH (10:27)
[2019-03-17 11:42] VITALS: BP 143/71
[2019-03-17] MEDS: HYDROCODONE/ACETAMINOPHEN 10/325MG TABLET PO PRN ×2 (11:42→18:18)
[2019-03-17 15:33] VITALS: BP 117/66
[2019-03-17] MEDS: IPRATROPIUM BROMIDE (0.02%) 0.5MG/2.5ML NEB HHN SCH (19:50)
[2019-03-17 20:00] VITALS: BP 125/70
[2019-03-18] VITALS: BP 150/79
[2019-03-18] MEDS: IPRATROPIUM BROMIDE (0.02%) 0.5MG/2.5ML NEB HHN SCH ×4 (01:52→20:40)
[2019-03-18 04:00] VITALS: BP 156/79
[2019-03-18] MEDS: MORPHINE SULFATE 2 MG/ML CPJ (NOT FOR IM USE) IV PRN ×2 (04:10→20:34)
[2019-03-18] MEDS: SODIUM CHLORIDE 0.9% INJ 3ML FLUSH IVF SCH ×3 (05:52→22:00)
[2019-03-18 06:36] LABS: BASOPHILS % 0.1 % (0.0-2.0); HEMATOCRIT. 33.1 % (42.0-52.0); HEMOGLOBIN. 10.6 g/dL (14.0-18.0); LYMPHOCYTES % 18.8 % (20.0-50.0); MEAN CORPUSCULAR HEMOGLOBIN 27.2 pg (28.0-32.0); MEAN CORPUSCULAR VOLUME 84.7 fL (80.0-94.0); MONOCYTES % 9.2 % (2.0-8.0); NEUTROPHILS % 68.9 % (40.0-76.0); PLATELET 212 x1000/uL (130-400); RED BLOOD CELL COUNT 3.91 mill/uL (4.7-6.1); RED CELL DISTRIBUTION WIDTH 15.6 % (11.6-14.6)
[2019-03-18 08:10] LABS: CHLORIDE 104 mEq/L (98-107)
[2019-03-18] MEDS: BUDESONIDE 0.5MG/2ML NEB HHN SCH ×2 (08:54→20:40)
[2019-03-18] MEDS: ENOXAPARIN 100MG/ML SYR SUBCUT SCH ×2 (09:41→20:32)
[2019-03-18] MEDS: METHADONE HCL 10MG TABLET PO SCH (09:42)
[2019-03-18] MEDS: LEVOFLOXACIN 500MG PREMIX 100 ML IV SCH (09:43)
[2019-03-18] MEDS: ACETAMINOPHEN 325MG TABLET PO PRN (11:28)
[2019-03-18 12:00] VITALS: BP 143/77
[2019-03-18 14:37] LABS: BG BASE EXCESS 1.1 mmol/L (-2.0-2.0); BG CARBOXYHEMOGLOBIN 1.1 % (0.5-1.5); BG HCO3 ACT 25.7 mmol/L (22.0-26.0); BG METHEMOGLOBIN 0.3 % (0.0-1.5); BG OXYGEN SATURATION 86.8 % (92.0-98.5); BG OXYHEMOGLOBIN 85.6 % (94.0-97.0); BG PCO2 40.6 mmHg (35.0-45.0); BG PH 7.419 (7.350-7.450); BG SAMPLE SITE RIGHT BRACHIAL; BG TOTAL HEMOGLOBIN 11.4 g/dL (12.0-18.0); BG VENT MODE ROOM AIR
[2019-03-18 16:00] VITALS: BP 147/79
[2019-03-18 20:00] VITALS: BP 147/85
[2019-03-19] VITALS: BP 103/70
[2019-03-19] MEDS: IPRATROPIUM BROMIDE (0.02%) 0.5MG/2.5ML NEB HHN SCH ×4 (02:00→21:23)
[2019-03-19 04:00] VITALS: BP 142/75
[2019-03-19] MEDS: SODIUM CHLORIDE 0.9% INJ 3ML FLUSH IVF SCH ×3 (06:00→22:21)
[2019-03-19 08:00] VITALS: BP 145/81
[2019-03-19] MEDS: LEVOFLOXACIN 500MG PREMIX 100 ML IV SCH (09:12)
[2019-03-19] MEDS: METHADONE HCL 10MG TABLET PO SCH (09:13)
[2019-03-19] MEDS: ENOXAPARIN 100MG/ML SYR SUBCUT SCH ×2 (09:14→20:14)
[2019-03-19 12:00] VITALS: BP 135/76
[2019-03-19] MEDS: HYDROCODONE/ACETAMINOPHEN 10/325MG TABLET PO PRN ×2 (13:22→20:15)
[2019-03-19 16:00] VITALS: BP 141/67
[2019-03-19 20:00] VITALS: BP 137/73
[2019-03-20] VITALS: BP 142/73
[2019-03-20] MEDS: IPRATROPIUM BROMIDE (0.02%) 0.5MG/2.5ML NEB HHN SCH ×3 (03:04→14:02)
[2019-03-20 04:00] VITALS: BP 132/74
[2019-03-20] MEDS: SODIUM CHLORIDE 0.9% INJ 3ML FLUSH IVF SCH ×2 (05:24→14:45)
[2019-03-20 08:00] VITALS: BP 132/75
[2019-03-20] MEDS: ENOXAPARIN 100MG/ML SYR SUBCUT SCH (10:04)
[2019-03-20] MEDS: METHADONE HCL 10MG TABLET PO SCH (10:06)
[2019-03-20] MEDS: LEVOFLOXACIN 500MG PREMIX 100 ML IV SCH (10:13)
[2019-03-20 12:00] VITALS: BP 137/70
[2019-03-20 15:44] VITALS: BP 135/73
[2019-03-20 19:29] VITALS: BP 135/73
== END 2019-03-20 20:05 | disposition home or self-care (01) | DRG 134 ==
LOC: ER 11:44 → 8WST 19:55 → ENRESERV 03-15 08:35
PROVIDERS: ADMIT Internal Medicine; ATTEND Internal Medicine
DX: I26.99 Other pulmonary embolism without acute cor pulmonale (principal); J96.01 Acute respiratory failure with hypoxia; J84.9 Interstitial pulmonary disease, unspecified; R65.10 Systemic inflammatory response syndrome (SIRS) of non-infectious origin without acute organ dysfunction; I27.20 Pulmonary hypertension, unspecified; G62.9 Polyneuropathy, unspecified; J43.9 Emphysema, unspecified; I27.82 Chronic pulmonary embolism; I73.9 Peripheral vascular disease, unspecified; F17.210 Nicotine dependence, cigarettes, uncomplicated; D64.9 Anemia, unspecified; R25.1 Tremor, unspecified; M10.9 Gout, unspecified; I80.9 Phlebitis and thrombophlebitis of unspecified site; I10 Essential (primary) hypertension; J98.11 Atelectasis; Z96.642 Presence of left artificial hip joint; M19.90 Unspecified osteoarthritis, unspecified site; Z79.02 Long term (current) use of antithrombotics/antiplatelets; Z86.72 Personal history of thrombophlebitis; Z98.62 Peripheral vascular angioplasty status; Z86.718 Personal history of other venous thrombosis and embolism; Z89.422 Acquired absence of other left toe(s); Z79.899 Other long term (current) drug therapy
CPT/HCPCS: 36415; 36600; 71045; 71275; 80048; 80053; 81003; 82375; 82550; 82553; 82805; 83735; 83880; 84484; 85025; 93005; 93306; 93970; 94640; 99285; J0360; J1650; J1956; J2270; J2405; J7040; J7626; Q9967

== ENCOUNTER 2019-05-17 01:16 | Emergency (ER) | payer MEDICARE, MEDICAID ==
[~2019-05-17] VITALS: Ht 182.9 cm; Wt 100.0 kg
[~2019-05-17 01:16] MED LIST changes: +TIOT18CA3 IH
[2019-05-17] MEDS ORDERED: ACETAMINOPHEN 325MG TABLET PO ONE (03:15)
[2019-05-17 03:23] LABS: BASOPHILS % 0.5 % (0.0-2.0); EOSINOPHILS % 2.7 % (0.0-5.0); HEMATOCRIT. 32.9 % (42.0-52.0); HEMOGLOBIN. 10.7 g/dL (14.0-18.0); LYMPHOCYTES % 39.8 % (20.0-50.0); MEAN CORPUSCULAR HEMOGLOBIN 27.8 pg (28.0-32.0); MEAN CORPUSCULAR VOLUME 85.5 fL (80.0-94.0); MEAN PLATELET VOLUME 9.2 fl (7.4-10.4); MONOCYTES % 10.1 % (2.0-8.0); NEUTROPHILS % 46.9 % (40.0-76.0); PLATELET 194 x1000/uL (130-400); RED BLOOD CELL COUNT 3.85 mill/uL (4.7-6.1); RED CELL DISTRIBUTION WIDTH 16.5 % (11.6-14.6)
[2019-05-17 05:08] VITALS: BP 153/55
== END 2019-05-17 05:29 | disposition home or self-care (01) ==
LOC: ER 01:16
DX: M79.661 Pain in right lower leg (principal); I11.0 Hypertensive heart disease with heart failure; I50.9 Heart failure, unspecified; M19.90 Unspecified osteoarthritis, unspecified site; J44.9 Chronic obstructive pulmonary disease, unspecified; E78.00 Pure hypercholesterolemia, unspecified; Z86.718 Personal history of other venous thrombosis and embolism; Z89.512 Acquired absence of left leg below knee; Z88.6 Allergy status to analgesic agent; Z96.649 Presence of unspecified artificial hip joint; Z79.01 Long term (current) use of anticoagulants
CPT/HCPCS: 36415; 73590; 80048; 85025; 93971; 99285

== ENCOUNTER 2021-07-09 03:59 | Inpatient (IN) | payer MEDICARE, MEDICAID ==
[~2021-07-09] VITALS: Ht 182.9 cm; Wt 94.3 kg
[~2021-07-09 03:59] MED LIST changes: +CLOP-31 MT; -CLOP75TA4 MT; -DOXY100C2 MT; +DOXY100C5 MT; -GABA-531 PO; +GABA-532 PO; -METH-611 GT; +METH-818 PO; +METH-819 GT; -METH10TA2 PO; +MONT-39 PO; -MONT10TA26 PO; -PANT40TA4 PO; +PANT40TA51 PO
[2021-07-09 04:43] LABS: BASOPHILS % 0.2 % (0.0-2.0); HEMATOCRIT. 38.3 % (42.0-52.0); HEMOGLOBIN. 12.4 g/dL (14.0-18.0); LYMPHOCYTES % 14.8 % (20.0-50.0); MEAN CORPUSCULAR VOLUME 86.5 fL (80.0-94.0); MEAN PLATELET VOLUME 9.1 fl (7.4-10.4); MONOCYTES % 5.6 % (2.0-8.0); NEUTROPHILS % 79.4 % (40.0-76.0); PLATELET 192 x1000/uL (130-400); RED BLOOD CELL COUNT 4.43 mill/uL (4.7-6.1); RED CELL DISTRIBUTION WIDTH 15.4 % (11.6-14.6)
[2021-07-09] MEDS ORDERED: ACETAMINOPHEN 500MG TABLET PO ONE (04:45)
[2021-07-09 04:49] LABS: CHLORIDE 112 mEq/L (98-107)
[2021-07-09 05:01] LABS: ETHANOL BLOOD < 10 mg/dL
[2021-07-09] MEDS ORDERED: ASPIRIN 325MG EC TABLET PO ONE (05:15)
[2021-07-09] MEDS ORDERED: ONDANSETRON HCL 4MG/2ML INJ IV ONE ×2 (05:30→08:15)
[2021-07-09] MEDS ORDERED: MORPHINE SULFATE 4 MG/ML CPJ (NOT FOR IM USE) IV ONE (06:00)
[2021-07-09] MEDS ORDERED: HYDRALAZINE 20MG/ML VIAL IV ONE (08:30)
[2021-07-09] MEDS ORDERED: NITROGLYCERIN 0.4MG TABLET SL SL PRN (10:00)
[2021-07-09] MEDS ORDERED: CLONIDINE 0.1MG TABLET PO PRN (10:00)
[2021-07-09] MEDS ORDERED: ZOLPIDEM TARTRATE 5MG TABLET PO PRN (10:00)
[2021-07-09] MEDS ORDERED: MAGNESIUM/ALUMINUM HYDROXIDE/SIMETHICONE 30ML UDC PO PRN (10:00)
[2021-07-09] MEDS ORDERED: GUAIFENESIN 200MG/10ML SUGAR FREE UDC PO PRN (10:00)
[2021-07-09] MEDS ORDERED: ACETAMINOPHEN 325MG TABLET PO PRN ×2 (10:00)
[2021-07-09] MEDS ORDERED: ONDANSETRON HCL 4MG/2ML INJ IV PRN (10:00)
[2021-07-09] MEDS ORDERED: DOCUSATE SODIUM 100MG CAPSULE PO PRN (10:00)
[2021-07-09] MEDS: KETOROLAC 15MG/ML VIAL IV PRN (10:15)
[2021-07-09] MEDS ORDERED: AMLODIPINE 10MG TABLET PO SCH (10:30)
[2021-07-09] MEDS: ENOXAPARIN 40MG/0.4ML SYR SUBCUT SCH (11:02)
[2021-07-09] MEDS: NITROGLYCERIN OINT 1GM/INCH UDPKT TD SCH ×3 (11:03→20:25)
[2021-07-09 11:30] VITALS: BP 146/67
[2021-07-09 11:47] LABS: ETHANOL BLOOD < 10 mg/dL; HDL CHOLESTEROL 47 mg/dL (40-59); LDL CHOLESTEROL 78 mg/dL (5-100); TOTAL IRON BINDING CAPACITY 263 ug/dL (250-450)
[2021-07-09 12:00] VITALS: BP 153/65
[2021-07-09 12:05] LABS: FOLIC ACID (FOLATE) SERUM 15.1 ng/mL (>5.38)
[2021-07-09 16:00] VITALS: BP 130/85
[2021-07-09 16:54] LABS: CREATINE KINASE MB FRACTION 2.2 ng/mL (0.5-3.6)
[2021-07-09 20:00] VITALS: BP 131/68
[2021-07-09] MEDS: FAMOTIDINE 20MG TABLET PO SCH (20:25)
[2021-07-10 00:05] VITALS: BP 112/54
[2021-07-10 03:48] LABS: CREATINE KINASE MB FRACTION 1.7 ng/mL (0.5-3.6)
[2021-07-10 04:01] VITALS: BP 113/61
[2021-07-10] MEDS: NITROGLYCERIN OINT 1GM/INCH UDPKT TD SCH ×3 (05:46→21:29)
[2021-07-10] MEDS: TRAMADOL 50MG TABLET PO PRN (06:49)
[2021-07-10 07:26] LABS: BASOPHILS % 0.3 % (0.0-2.0); EOSINOPHILS % 1.4 % (0.0-5.0); HEMATOCRIT. 35.5 % (42.0-52.0); HEMOGLOBIN. 11.1 g/dL (14.0-18.0); LYMPHOCYTES % 38.4 % (20.0-50.0); MEAN CORPUSCULAR HEMOGLOBIN 27.8 pg (28.0-32.0); MEAN CORPUSCULAR VOLUME 88.4 fL (80.0-94.0); MEAN PLATELET VOLUME 9.5 fl (7.4-10.4); MONOCYTES % 9.9 % (2.0-8.0); PLATELET 155 x1000/uL (130-400); RED BLOOD CELL COUNT 4.01 mill/uL (4.7-6.1); RED CELL DISTRIBUTION WIDTH 15.5 % (11.6-14.6)
[2021-07-10 07:36] LABS: CHLORIDE 109 mEq/L (98-107)
[2021-07-10 08:00] VITALS: BP 149/87
[2021-07-10] MEDS: ASPIRIN 81MG EC TABLET PO SCH (08:26)
[2021-07-10] MEDS: ENOXAPARIN 40MG/0.4ML SYR SUBCUT SCH (08:26)
[2021-07-10] MEDS: AMLODIPINE 5MG TABLET PO SCH (08:27)
[2021-07-10] MEDS: FAMOTIDINE 20MG TABLET PO SCH ×2 (08:27→21:29)
[2021-07-10] MEDS: CLOPIDOGREL 75MG TABLET PO SCH (08:27)
[2021-07-10] MEDS: IPRATROPIUM/ALBUTEROL 0.5-3(2.5)MG/3ML NEB NEB PRN (08:56)
[2021-07-10 12:00] VITALS: BP 124/65
[2021-07-10] MEDS: SODIUM CHLORIDE 0.9% 1,000 ML IV SCH (15:55)
[2021-07-10 16:00] VITALS: BP 130/73
[2021-07-10 20:00] VITALS: BP 145/63
[2021-07-11] VITALS: BP 150/73
[2021-07-11 04:00] VITALS: BP 149/71
[2021-07-11] MEDS: SODIUM CHLORIDE 0.9% 1,000 ML IV SCH ×2 (05:00→18:25)
[2021-07-11] MEDS: NITROGLYCERIN OINT 1GM/INCH UDPKT TD SCH ×3 (05:00→21:43)
[2021-07-11 08:00] VITALS: BP 128/72
[2021-07-11] MEDS ORDERED: IOHEXOL-350 100 ML BOTTLE ONE (09:21)
[2021-07-11] MEDS: CLOPIDOGREL 75MG TABLET PO SCH (09:24)
[2021-07-11] MEDS: FAMOTIDINE 20MG TABLET PO SCH ×2 (09:24→20:50)
[2021-07-11] MEDS: ASPIRIN 81MG EC TABLET PO SCH (09:24)
[2021-07-11] MEDS: TRAMADOL 50MG TABLET PO PRN (09:25)
[2021-07-11] MEDS: AMLODIPINE 5MG TABLET PO SCH (09:25)
[2021-07-11] MEDS: ENOXAPARIN 40MG/0.4ML SYR SUBCUT SCH (09:26)
[2021-07-11] MEDS: IPRATROPIUM/ALBUTEROL 0.5-3(2.5)MG/3ML NEB NEB PRN (09:30)
[2021-07-11 12:00] VITALS: BP 149/73
[2021-07-11] MEDS: KETOROLAC 15MG/ML VIAL IV PRN ×2 (12:17→12:18)
[2021-07-11 16:00] VITALS: BP 148/71
[2021-07-11 20:00] VITALS: BP 145/69
[2021-07-12] VITALS: BP 156/83
[2021-07-12] MEDS: IPRATROPIUM/ALBUTEROL 0.5-3(2.5)MG/3ML NEB NEB PRN (04:41)
[2021-07-12 08:00] VITALS: BP 157/58
[2021-07-12] MEDS: AMLODIPINE 5MG TABLET PO SCH (08:55)
[2021-07-12] MEDS: CLOPIDOGREL 75MG TABLET PO SCH (08:55)
[2021-07-12] MEDS: ASPIRIN 81MG EC TABLET PO SCH (08:55)
[2021-07-12] MEDS: FAMOTIDINE 20MG TABLET PO SCH (08:56)
[2021-07-12] MEDS: ENOXAPARIN 40MG/0.4ML SYR SUBCUT SCH (08:56)
[2021-07-12 10:39] VITALS: BP 157/58
== END 2021-07-12 12:20 | disposition home or self-care (01) | DRG 241 ==
LOC: ER 03:59 → 7WST 08:07 → ENRESERV 11:14
PROVIDERS: ADMIT Internal Medicine; ATTEND Internal Medicine
DX: K29.70 Gastritis, unspecified, without bleeding (principal); I21.4 Non-ST elevation (NSTEMI) myocardial infarction; I50.31 Acute diastolic (congestive) heart failure; I11.0 Hypertensive heart disease with heart failure; J44.9 Chronic obstructive pulmonary disease, unspecified; I25.10 Atherosclerotic heart disease of native coronary artery without angina pectoris; M19.90 Unspecified osteoarthritis, unspecified site; D64.9 Anemia, unspecified; F17.210 Nicotine dependence, cigarettes, uncomplicated; Z88.3 Allergy status to other anti-infective agents; Z79.899 Other long term (current) drug therapy; Z86.711 Personal history of pulmonary embolism; Z86.718 Personal history of other venous thrombosis and embolism; F19.11 Other psychoactive substance abuse, in remission
CPT/HCPCS: 36415; 71045; 71275; 80053; 80061; 80320; 82550; 82553; 82607; 82746; 83036; 83540; 83550; 83735; 83880; 84100; 84443; 84484; 85025; 93005; 93306; 93970; 94640; 97162; 97166; 99291; J1650; J1885; J2270; J2405; J7030; Q9967; G0480

== ENCOUNTER 2022-04-15 14:40 | Inpatient (IN) | payer MEDICARE, MEDICAID ==
[~2022-04-15] VITALS: Ht 182.9 cm; Wt 90.3 kg
[2022-04-15] MEDS: IPRATROPIUM/ALBUTEROL 0.5-3(2.5)MG/3ML NEB HHN SCH (04:55)
[~2022-04-15 14:40] MED LIST changes: -DULERA INHALER; -FURO20TA4 PO; -HYDR-4134 PO; -HYDR100T31 PO; -LOPHC2 MT; -METH-819 GT; -TIOT18CA3 PO; -TRAMADOL PO
[2022-04-15] MEDS ORDERED: ALBUTEROL (0.083%) 2.5MG/3ML NEB HHN STA (19:08)
[2022-04-15] MEDS ORDERED: IPRATROPIUM BROMIDE (0.02%) 0.5MG/2.5ML NEB HHN STA (19:08)
[2022-04-15] MEDS ORDERED: METHYLPREDNISOLONE SOD SUCC 125 MG/2 ML VIAL IV STA (19:08)
[2022-04-15 19:34] LABS: BASOPHILS % 0.2 % (0.0-2.0); EOSINOPHILS % 1.7 % (0.0-5.0); HEMATOCRIT. 39.2 % (42.0-52.0); HEMOGLOBIN. 12.4 g/dL (14.0-18.0); LYMPHOCYTES % 24.6 % (20.0-50.0); MEAN CORPUSCULAR HEMOGLOBIN 27.5 pg (28.0-32.0); MEAN CORPUSCULAR VOLUME 87.1 fL (80.0-94.0); MEAN PLATELET VOLUME 8.8 fl (7.4-10.4); MONOCYTES % 10.8 % (2.0-8.0); NEUTROPHILS % 62.7 % (40.0-76.0); PLATELET 236 x1000/uL (130-400); RED CELL DISTRIBUTION WIDTH 15.3 % (11.6-14.6)
[2022-04-15 19:39] LABS: CHLORIDE 109 mEq/L (98-107)
[2022-04-15] MEDS ORDERED: GUAIFENESIN 200MG/10ML SUGAR FREE UDC PO PRN (22:00)
[2022-04-15] MEDS ORDERED: CLONIDINE 0.1MG TABLET PO PRN (22:00)
[2022-04-15] MEDS ORDERED: ONDANSETRON HCL 4MG/2ML INJ IV PRN (22:00)
[2022-04-15] MEDS ORDERED: IPRATROPIUM/ALBUTEROL 0.5-3(2.5)MG/3ML NEB HHN PRN (22:00)
[2022-04-15] MEDS ORDERED: ACETAMINOPHEN 325MG TABLET PO PRN (22:00)
[2022-04-15] MEDS ORDERED: LEVOFLOXACIN 500MG PREMIX 100 ML IV SCH (23:00)
[2022-04-16 00:40] LABS: T4 FREE 1.37 ng/dL (0.76-1.46)
[2022-04-16 00:55] LABS: FOLIC ACID (FOLATE) SERUM 12.2 ng/mL (>5.38)
[2022-04-16 00:57] LABS: CREATINE KINASE MB FRACTION 1.8 ng/mL (0.5-3.6)
[2022-04-16 01:36] LABS: CLARITY URINE CLEAR (CLEAR); COLOR URINE YELLOW (YELLOW); KETONES URINE NEGATIVE (NEGATIVE); LEUKOCYTE ESTERASE URINE NEGATIVE (NEGATIVE); NITRITE URINE NEGATIVE (NEGATIVE); OCCULT BLOOD URINE NEGATIVE (NEGATIVE); PROTEIN URINE NEGATIVE (NEGATIVE); SPECIFIC GRAVITY URINE 1.017 (1.005-1.030); UROBILINOGEN URINE 0.2 E.U./dL (0.2-1.0)
[2022-04-16 01:49] LABS: *AMPHETAMINES SCREEN URINE NEGATIVE (NEGATIVE); *BARBITURATES SCREEN URINE NEGATIVE (NEGATIVE); *BENZODIAZEPINES SCREEN URINE NEGATIVE (NEGATIVE); *COCAINE SCREEN URINE NEGATIVE (NEGATIVE); CANNABINOID URINE SCREEN NEGATIVE (NEGATIVE); METHADONE URINE SCREEN NEGATIVE (NEGATIVE); OPIATES URINE SCREEN PRESUMTIVE POSITIVE (NEGATIVE); PHENCYCLIDINE URINE SCREEN NEGATIVE (NEGATIVE)
[2022-04-16 05:29] LABS: BASOPHILS % 0.1 % (0.0-2.0); EOSINOPHILS % 0.1 % (0.0-5.0); HEMATOCRIT. 34.6 % (42.0-52.0); LYMPHOCYTES % 10.6 % (20.0-50.0); MEAN CORPUSCULAR HEMOGLOBIN 27.7 pg (28.0-32.0); MONOCYTES % 3.4 % (2.0-8.0); NEUTROPHILS % 85.8 % (40.0-76.0); PLATELET 216 x1000/uL (130-400); RED BLOOD CELL COUNT 3.98 mill/uL (4.7-6.1); RED CELL DISTRIBUTION WIDTH 15.3 % (11.6-14.6)
[2022-04-16 05:41] LABS: CHLORIDE 108 mEq/L (98-107)
[2022-04-16 05:51] LABS: PHOSPHORUS 3.1 mg/dL (2.5-4.9)
[2022-04-16 06:24] LABS: CREATINE KINASE MB FRACTION 1.5 ng/mL (0.5-3.6)
[2022-04-16] MEDS: IPRATROPIUM/ALBUTEROL 0.5-3(2.5)MG/3ML NEB HHN SCH ×4 (07:52→20:56)
[2022-04-16 10:34] VITALS: BP 154/67
[2022-04-16] MEDS: METOPROLOL TARTRATE 100MG TABLET PO SCH ×2 (10:55→21:25)
[2022-04-16] MEDS: FUROSEMIDE 40MG TABLET PO SCH (10:55)
[2022-04-16] MEDS: HYDRALAZINE HCL 50MG TABLET PO SCH ×2 (10:55→21:25)
[2022-04-16] MEDS: ASPIRIN 81MG TABLET PO SCH (10:55)
[2022-04-16] MEDS: CLOPIDOGREL 75MG TABLET PO SCH (10:55)
[2022-04-16] MEDS: ENOXAPARIN 40MG/0.4ML SYR SUBCUT SCH (10:56)
[2022-04-16] MEDS: METHYLPREDNISOLONE SOD SUCC 125 MG/2 ML VIAL IV SCH ×3 (10:56→21:23)
[2022-04-16 16:00] VITALS: BP 155/75
[2022-04-16] MEDS: ALLOPURINOL 100 MG TABLET PO SCH (17:09)
[2022-04-16 20:00] VITALS: BP 160/86
[2022-04-16] MEDS: ACETAMINOPHEN 325MG TABLET PO PRN (21:24)
[2022-04-16] MEDS: FAMOTIDINE 20MG TABLET PO SCH (21:24)
[2022-04-16] MEDS: ATORVASTATIN CALCIUM 10MG TABLET PO SCH (21:25)
[2022-04-17] VITALS: BP 147/72
[2022-04-17] MEDS: IPRATROPIUM/ALBUTEROL 0.5-3(2.5)MG/3ML NEB HHN SCH ×7 (00:20→20:14)
[2022-04-17] MEDS: LEVOFLOXACIN 250MG PREMIX 50 ML IV SCH ×2 (01:30→22:36)
[2022-04-17 04:00] VITALS: BP 154/60
[2022-04-17] MEDS: METHYLPREDNISOLONE SOD SUCC 125 MG/2 ML VIAL IV SCH ×3 (06:51→22:36)
[2022-04-17 09:01] VITALS: BP 139/86
[2022-04-17] MEDS: FUROSEMIDE 40MG TABLET PO SCH (09:01)
[2022-04-17] MEDS: ASPIRIN 81MG TABLET PO SCH (09:01)
[2022-04-17] MEDS: HYDRALAZINE HCL 50MG TABLET PO SCH ×2 (09:01→20:49)
[2022-04-17] MEDS: CLOPIDOGREL 75MG TABLET PO SCH (09:01)
[2022-04-17] MEDS: ALLOPURINOL 100 MG TABLET PO SCH (09:01)
[2022-04-17] MEDS: ENOXAPARIN 40MG/0.4ML SYR SUBCUT SCH (09:02)
[2022-04-17] MEDS: METOPROLOL TARTRATE 100MG TABLET PO SCH ×2 (09:02→20:45)
[2022-04-17 12:06] VITALS: BP 170/88
[2022-04-17] MEDS: ONDANSETRON HCL 4MG/2ML INJ IV PRN (15:40)
[2022-04-17] MEDS: ACETAMINOPHEN 325MG TABLET PO PRN ×2 (15:40→23:54)
[2022-04-17] MEDS: DOCUSATE SODIUM 100MG CAPSULE PO PRN (15:41)
[2022-04-17 16:00] VITALS: BP 153/74
[2022-04-17 20:00] VITALS: BP 153/99
[2022-04-17] MEDS: FAMOTIDINE 20MG TABLET PO SCH (20:46)
[2022-04-17] MEDS: ATORVASTATIN CALCIUM 10MG TABLET PO SCH (20:46)
[2022-04-18] VITALS: BP 155/77
[2022-04-18] MEDS: IPRATROPIUM/ALBUTEROL 0.5-3(2.5)MG/3ML NEB HHN SCH ×2 (03:47→11:42)
[2022-04-18] MEDS: ONDANSETRON HCL 4MG/2ML INJ IV PRN ×3 (03:56→14:42)
[2022-04-18 04:00] VITALS: BP 152/67
[2022-04-18] MEDS: METHYLPREDNISOLONE SOD SUCC 125 MG/2 ML VIAL IV SCH ×2 (06:42→14:34)
[2022-04-18 08:00] VITALS: BP 162/88
[2022-04-18] MEDS ORDERED: LEVO-65 MT (08:12)
[2022-04-18] MEDS ORDERED: P20 MT (08:12)
[2022-04-18] MEDS: ASPIRIN 81MG TABLET PO SCH (08:40)
[2022-04-18] MEDS: CLOPIDOGREL 75MG TABLET PO SCH (08:40)
[2022-04-18] MEDS: ALLOPURINOL 100 MG TABLET PO SCH (08:41)
[2022-04-18] MEDS: DOCUSATE SODIUM 100MG CAPSULE PO PRN (08:41)
[2022-04-18] MEDS: HYDRALAZINE HCL 50MG TABLET PO SCH (08:41)
[2022-04-18] MEDS: FUROSEMIDE 40MG TABLET PO SCH (08:41)
[2022-04-18] MEDS: METOPROLOL TARTRATE 100MG TABLET PO SCH (08:41)
[2022-04-18] MEDS: ENOXAPARIN 40MG/0.4ML SYR SUBCUT SCH (08:42)
[2022-04-18] MEDS ORDERED: BISACODYL 10MG SUPP PR NR ×2 (09:00→15:00)
[2022-04-18] MEDS ORDERED: LACTULOSE 20G/30ML UDC PO NR (09:00)
[2022-04-18] MEDS ORDERED: NA PHOS,M-B/NA PHOS,DI-BA ENEMA 118ML PR NR (11:00)
[2022-04-18 12:10] VITALS: BP 176/94
[2022-04-18] MEDS ORDERED: METOCLOPRAMIDE HCL 10MG/2ML VIAL IV NR (13:30)
[2022-04-18] MEDS ORDERED: SORBITOL 70% SOLN 30ML PO NR (15:00)
[2022-04-18 16:10] VITALS: BP 180/98
[2022-04-18 18:58] VITALS: BP 180/98
[2022-04-18] MEDS ORDERED: LEVOFLOXACIN 500MG TABLET PO SCH (21:00)
== END 2022-04-18 19:19 | disposition home or self-care (01) | DRG 140 ==
LOC: ER 14:40 → MICUSO 21:11 → EDBEDREQ 21:25 → SUPCPDRO 22:37 → 3WST 04-16 09:20
PROVIDERS: ADMIT Internal Medicine; ATTEND Internal Medicine
DX: J44.1 Chronic obstructive pulmonary disease with (acute) exacerbation (principal); J96.00 Acute respiratory failure, unspecified whether with hypoxia or hypercapnia; N17.0 Acute kidney failure with tubular necrosis; I50.30 Unspecified diastolic (congestive) heart failure; I11.0 Hypertensive heart disease with heart failure; Z20.822 Contact with and (suspected) exposure to COVID-19; D64.9 Anemia, unspecified; E78.5 Hyperlipidemia, unspecified; I48.91 Unspecified atrial fibrillation; Z79.02 Long term (current) use of antithrombotics/antiplatelets; Z79.82 Long term (current) use of aspirin; Z79.899 Other long term (current) drug therapy; Z88.8 Allergy status to other drugs, medicaments and biological substances; Z96.642 Presence of left artificial hip joint; Z86.711 Personal history of pulmonary embolism; Z86.718 Personal history of other venous thrombosis and embolism
CPT/HCPCS: 36415; 71045; 74018; 80053; 80061; 80305; 81003; 82550; 82553; 82607; 82746; 83036; 83540; 83550; 83735; 83880; 84100; 84439; 84443; 84484; 85025; 87426; 93005; 93306; 94640; 99285; C9803; J1650; J1956; J2405; J2765; J2930